=== PATIENT | female | born 1965 | race Caucasian/White ===

== ENCOUNTER 2017-04-07 18:30 | Emergency (ER) | payer OTHER ==
[~2017-04-07] VITALS: Ht 172.7 cm; Wt 93.6 kg
[~2017-04-07 18:30] MED LIST: ACID REFLUX MED; ALBUTEROL; ANTIFUNGAL; ASTHMA MED; ATARAX,VISTARIL25 MG PO; AUGMENTIN875 MG PO; B-COMPLEX-VITA1 EACH PO; BLEPH-105 ML RIGHT EYE; BLOOD PRESSURE MED; CHOLESTEROL MED; COMPLEX B-1001 EACH PO; FLONASE16 G1 BOTH NARES; Flonase BOTH NARES; LIPITOR10 MG PO; Levothroid,Synthroid PO; Lipitor PO; MELOXICAM PO; MOTRIN800 MG PO; NASAL SPRAY; NORCO 7.5/321 TABLET PO; Norvasc PO; PREDNISONE20 MG PO; PROTONIX40 MG PO; PROVENTIL HFA6.7 GM IH; PULMICORT FLEX90 MCG IH; Percocet 5/325,Endoc PO; Protonix PO; Proventil,Ventolin H IH; Pulmicort 180 microg IH; SINGULAIR10 MG PO; SYNTHROID125 MCG PO; Singulair PO; Super B Complex-C PO; THYROID MED; ULTRAM50 MG PO; VALIUM5 MG PO; VITAMIN D31000 UNIT PO; ZOFRAN ODT4 MG PO; [UNRECOGNIZED DRUG - OTHER] TP; celeBREX PO
[2017-04-07] MEDS ORDERED: MOTRIN800 MG PO (20:26)
[2017-04-07 20:58] VITALS: BP 146/59
== END 2017-04-07 20:59 | disposition home or self-care (01) ==
LOC: EME 18:30
DX: S00.03XA Contusion of scalp, initial encounter (principal); S63.501A Unspecified sprain of right wrist, initial encounter; S80.211A Abrasion, right knee, initial encounter; W18.09XA Striking against other object with subsequent fall, initial encounter; Y93.K1 Activity, walking an animal; J45.909 Unspecified asthma, uncomplicated; E78.5 Hyperlipidemia, unspecified
CPT/HCPCS: 70450; 73110; 73564; 99281; 99284; J1885